=== PATIENT | female | born 1960 | race African-American/Black ===

== ENCOUNTER 2016-11-12 19:14 | Emergency (ER) | payer OTHER ==
[~2016-11-12] VITALS: Ht 165.1 cm; Wt 130.2 kg
[2016-11-12 19:59] VITALS: BP 145/81
--- NOTE | 2016-11-12 20:30 | NUR ---
Patient ambulated to XRAY with tech--from lobby.
--- NOTE | 2016-11-12 20:56 | NUR ---
56Y F BIB SELF C/O RIGHT ELBOW PAIN S/P FALL FROM A [employer] AT 1500HOU[facility] WITH PAIN ON HER RT ELBOW WITH ABRASIONS, SHOULDER ,NECK, KNEES, ANKLES , AND LOWER BACK. PT DENIES N/V/D/, SOB, CP AT THE MOMENT.
--- NOTE | 2016-11-12 20:56 | NUR ---
Patient to [facility].
--- NOTE | 2016-11-12 22:03 | NUR ---
Dr. Carmona evaluating patient.
[2016-11-12 22:28] VITALS: BP 137/72
--- NOTE | 2016-11-12 22:28 | NUR ---
Patient discharged with v/s stable. Written and verbal after care instructions given and explained. Patient alert, oriented and verbalized understanding of instructions. Ambulatory with steady gait. All questions addressed prior to discharge. ID band removed. Patient advised to follow up with PMD. Rx of FLEXERIL 10MG given. Patient educated on indication of medication including possible reaction and side effects. Opportunity to ask questions provided and answered.
== END 2016-11-12 22:28 | disposition home or self-care (01) ==
LOC: MED 19:14 → EEVIPCON 19:14 → MED 22:28
DX: S43.401A Unspecified sprain of right shoulder joint, initial encounter (principal); S93.401A Sprain of unspecified ligament of right ankle, initial encounter; S80.02XA Contusion of left knee, initial encounter; S50.01XA Contusion of right elbow, initial encounter; E11.9 Type 2 diabetes mellitus without complications; I10 Essential (primary) hypertension; Z90.89 Acquired absence of other organs; Z88.8 Allergy status to other drugs, medicaments and biological substances; W01.0XXA Fall on same level from slipping, tripping and stumbling without subsequent striking against object, initial encounter; Y93.89 Activity, other specified; Y92.89 Other specified places as the place of occurrence of the external cause; Y99.8 Other external cause status
CPT/HCPCS: 73030; 73080; 99284

== ENCOUNTER 2016-11-19 10:28 | Emergency (ER) | payer OTHER ==
[~2016-11-19] VITALS: Ht 167.6 cm; Wt 122.5 kg
[2016-11-19 10:37] VITALS: BP 152/85
--- NOTE | 2016-11-19 11:14 | NUR ---
PATIENT PRESENTS TO ED WITH C/O RIGHT ELBOW PAIN . PT STATES SHE FELL 1 WEEK AGO AND WAS SEEN IN ER, BUT THE PAIN HAS PERSISTED . DENIES N/V/D; SKIN IS PINK/WARM/DRY; AAOX4 WITH EVEN AND STEADY GAIT; LUNGS CLEAR BL; HR EVEN AND REGULAR; PT DENIES ANY FEVER, CP, SOB, OR COUGH AT THIS TIME; PATIENT STATES PAIN OF 8/10 AT THIS TIME; VSS; PATIENT POSITIONED FOR COMFORT; HOB ELEVATED; BEDRAILS UP X2; BED DOWN. ER MD MADE AWARE OF PT STATUS.
--- NOTE | 2016-11-19 11:17 | NUR ---
Doug LAGOS PTDonaldo
[2016-11-19 11:24] VITALS: BP 152/85
--- NOTE | 2016-11-19 11:24 | NUR ---
Patient discharged with v/s stable. Written and verbal after care instructions given and explained. Patient alert, oriented and verbalized understanding of instructions. Ambulatory with steady gait. All questions addressed prior to discharge. ID band removed. Patient advised to follow up with PMD. Rx of NAPROSYN AND TYLENOL W/CODEINE given. Patient educated on indication of medication including possible reaction and side effects. Opportunity to ask questions provided and answered.
== END 2016-11-19 11:24 | disposition home or self-care (01) ==
LOC: MED 10:28
DX: S50.01XA Contusion of right elbow, initial encounter (principal); E11.9 Type 2 diabetes mellitus without complications; I10 Essential (primary) hypertension; Z88.8 Allergy status to other drugs, medicaments and biological substances; W01.0XXA Fall on same level from slipping, tripping and stumbling without subsequent striking against object, initial encounter; Y93.89 Activity, other specified; Y92.89 Other specified places as the place of occurrence of the external cause; Y99.8 Other external cause status
CPT/HCPCS: 73080; 99284

== ENCOUNTER 2016-11-30 16:37 | Outpatient (CLI) | payer OTHER | END 2016-11-30 20:48 | disposition home or self-care (01) | LOC: MRD 16:37 | DX: M17.0 Bilateral primary osteoarthritis of knee (principal); M79.641 Pain in right hand | CPT/HCPCS: 73130; 73562 ==